=== PATIENT | female | born 1955 | race Two or more races ===

== ENCOUNTER 2017-08-27 09:34 | Day surgery (SDC) | payer OTHER ==
[~2017-08-27] VITALS: Ht 154.9 cm; Wt 82.4 kg
[~2017-08-27 09:34] MED LIST: AEC81 PO; ATOR10TA69 PO; LEVO100T12 PO; LISI-613 PO; METF10004 PO; SODIUM CHLORIDE 0.9% 1000ML 1,000 ML IV ONE; UBID100C10 PO; VITAD50000 PO
[2017-08-27 10:03] VITALS: BP 124/63
[2017-08-27] MEDS ORDERED: PROPOFOL 10 MG/ML 20ML VIAL IV ONE (11:12)
== END 2017-08-27 12:20 | disposition home or self-care (01) ==
LOC: DAH 09:34 → ENDO 09:34
PROVIDERS: ATTEND Internal Medicine Gastroenterology
DX: Z12.11 Encounter for screening for malignant neoplasm of colon (principal); I10 Essential (primary) hypertension; E78.5 Hyperlipidemia, unspecified; E11.9 Type 2 diabetes mellitus without complications; E03.9 Hypothyroidism, unspecified; Z90.710 Acquired absence of both cervix and uterus; Z83.3 Family history of diabetes mellitus; Z79.899 Other long term (current) drug therapy; Z79.84 Long term (current) use of oral hypoglycemic drugs; Z68.36 Body mass index [BMI] 36.0-36.9, adult; K57.30 Diverticulosis of large intestine without perforation or abscess without bleeding
CPT/HCPCS: 45378; 82948 ×2; A4606; J2704; J7030